=== PATIENT | female | born 1985 | race Caucasian/White ===

== ENCOUNTER 2016-12-24 06:47 | Emergency (ER) | payer OTHER ==
[~2016-12-24] VITALS: Ht 162.6 cm; Wt 63.5 kg
[~2016-12-24 06:47] MED LIST: ADDERALL 10 MG10 MG PO; ALPRAZOLAM1 M2 PO; LEXAPRO20 M1 PO; MIRENA1 EACH; MULTI-DAY VITA1 EACH PO
--- NOTE | 2016-12-24 07:29 | ED GENERAL ADULT ---
History of Present Illness General Chief Complaint: General Adult Stated Complaint: PANIC ATTACK Source: patient, family Exam Limitations: no limitations Vital Signs & Intake/Output Vital Signs & Intake/Output Vital Signs Date Time Temp Pulse Resp B/P Pulse O2 O2 Flow FiO2 Ox Delivery Rate 12/24 0849 98.6 76 18 126/84 98 Room Air 12/24 0654 Room Air 12/24 0650 97.2 85 20 134/91 100 Room Air Allergies Coded Allergies: No Known Allergies (08/25/16) Reconcile Medications Alprazolam 1 MG TABLET 2 TAB PO BID PRN ANXIETY (Reported) Escitalopram Oxalate (Lexapro) 20 MG TABLET 1 TAB PO DAILY DEPRESSION ( Reported) Levonorgestrel (Mirena) 20 MCG/24 HOUR (5 YEARS) IUD CONTROL (Reported) Multivitamin (Multi-Day Vitamins) 1 EACH TABLET 1 TAB PO DAILY SUPPLEMENT ( Reported) Triage Note: PT BIBA S/P WAKING UP HAVING A "?PANIC ATTACK." PT HAS HX OF ANXIETY AND RAN OUT OF MEDS. PER PT, PT HAS BEEN UNDER ALOT OF STRESS LATELY AND GOING THROUGH A DIVORCE. Triage Nurses Notes Reviewed? yes : No Patient currently breastfeeds: No HPI: 31-year-old woman with past medical history of anxiety and panic attack and depression seen for evaluation of nausea/vomiting and a reported panic attack. Patient reports increased stress in her life as she is going through a custody clemons over her child and her divorce from her spouse. She reports nausea with associated bilious vomiting since yesterday. She woke this morning around 3 AM and again at 5 AM with a "panic attack" describing her palpitations, tremulousness with high levels of anxiety. These events were further corroborated by her mother Natividad who was present during the interview. Currently she denies any suicidal/homicidal ideation. She reportedly is followed by a Dr. Javier for control of her panic attacks and was due to see them at 10 AM today for a medication refill. She suffered from these panic attacks since age 16 and reports that they have been well controlled on her regimen of trazodone, Lexapro, and alprazolam 2 mg 3 times a day when necessary. Additionally she denies any headache, fever, chills, chest pain, shortness breath, cough, diarrhea. (NATALIIA HARRIS,FELICIANO) Past History Travel History Traveled to [place] past 21 day No Medical History Any Pertinent Medical History? see below for history Neurological: NONE EENT: NONE Cardiovascular: NONE Respiratory: NONE Gastrointestinal: NONE Hepatic: NONE Renal: NONE Musculoskeletal: NONE Psychiatric: anxiety Endocrine: NONE Blood Disorders: anemia Cancer(s): NONE BUSINESS DEVELOPMENT ENGINEER/Reproductive: NONE Surgical History Surgical History: non-contributory Psychosocial History What is your primary language Syriac Tobacco Use: Never used ETOH Use: denies use Family History Hx Contributory? Yes (FELICIANO WILLIAM MD) Review of Systems Review of Systems Constitutional: Reports: see HPI. (FELICIANO WILLIAM MD) Review of Systems EENTM: Reports: no symptoms. Respiratory: Reports: no symptoms. Cardiovascular: Reports: no symptoms. GI: Reports: no symptoms. Genitourinary: Reports: no symptoms. Musculoskeletal: Reports: no symptoms. Skin: Reports: no symptoms. Neurological/Psychological: Reports: see HPI, anxiety. Hematologic/Endocrine: Reports: no symptoms. Immunologic/Allergic: Reports: no symptoms. All Other Systems: Reviewed and Negative (MITCHELL PACHECO MD) Physical Exam Physical Exam General Appearance: well developed/nourished, anxious, mild distress Comments: General - well-developed, well-nourished young woman in mild distress HEENT - NCAT, PERRL, EOMI, anicteric sclera Cardio -tachycardic, S1/S2 without murmurs gallops or rubs Resp - CTA bilaterally w/o wheezing/rhochi/crackles GI - soft, nontender, nondistended, bowel sounds present Neuro - Awake and alert, CN II - XII grossly intact Extremities -normal pulses, no cyanosis/clubbing/edema Core Measures ACS in differential dx? No CVA/TIA Diagnosis: No Severe Sepsis Present: No Septic Shock Present: No (FELICIANO WILLIAM MD) Progress Differential Diagnoses I considered the following diagnoses in my evaluation of the patient: Panic attack, anxiety, substance intoxication, gastroenteritis, pancreatitis Plan of Care: Orders Procedure Date/time Status URINE DRUGS OF ABUSE 12/24 720 Active URINE 12/24 720 Active LIPASE 12/24 720 Complete COMPREHENSIVE METABOLIC PANEL 12/24 720 Complete CBC WITHOUT DIFFERENTIAL 12/24 720 Complete EKG 12/24 720 Active Laboratory Tests 12/24/16 0745: Anion Gap 16, Estimated GFR > 60, BUN/Creatinine Ratio 44.0 H, Glucose 118 H, Calcium 9.6, Total Bilirubin 1.6 H, AST 20, ALT 23, Alkaline Phosphatase 62, Total Protein 7.5, Albumin 4.5, Globulin 3.0, Albumin/Globulin Ratio 1.5, Lipase 82, CBC w Diff NO MAN DIFF REQ, RBC 4.45, MCV 93.5, MCH 31.6 H, RDW 11.7, MPV 8.1, Gran % 86.5 H, Lymphocytes % 8.8 L, Monocytes % 4.4, Eosinophils % 0, Basophils % 0.3, Absolute Granulocytes 10.1 H, Absolute Lymphocytes 1.0 L, Absolute Monocytes 0.5, Absolute Eosinophils 0, Absolute Basophils 0, PUBS MCHC 33.8 Initial ED EKG: Left axis deviation, T-wave inversion leads III, AVF Comments: Complete blood count demonstrated a mild leukocytosis of 11.2 and was otherwise unremarkable. Comprehensive metabolic panel demonstrated a mildly elevated total bilirubin level to 1.6. Given patient's benign abdominal exam and recent history of nausea and vomiting it is unlikely that patient has any active biliary disease. Given her history of present illness and history of anxiety/ depression with panic attacks it is more likely than not patients current presentation represents that of an acute panic attack. EKG demonstrated normal sinus rhythm left axis deviation and nonspecific T-wave inversions in the inferior leads without any ST segment changes. QTc was found to be prolonged to 517. Patient was given 2 mg of alprazolam with instruction to follow-up with her therapist Dr. Javier for further evaluation after discharge. Patient was given a copy of her EKG to bring to her psychiatrist appointment for assessment of QTc prolongation in regards to her psychiatric medication regimen. (FELICIANO WILLIAM MD) Departure Departure Disposition: HOME OR SELF CARE Condition: Stable Clinical Impression Primary Impression: Panic attack Secondary Impressions: Anxiety Referrals: PATIENT HAS NO PRIMARY CARE DR (PCP/Family) Additional Instructions: Take alprazolam as directed by her psychiatrist. Follow-up with Dr. Javier for further evaluation of your anxiety and panic attacks. Call 911 or return to the ED should your symptoms worsen or return. Departure Forms: Customer Survey General Discharge Information (FELICIANO WILLIAM MD) Resident Co-Sign Statement Statement: ED Attending supervision documentation- x I saw and evaluated the patient. I have also reviewed all the pertinent lab results and diagnostic results. I agree with the findings and the plan of care as documented in the Resident's documentation. [] I have reviewed the ED Record and agree with the Resident's documentation. [] Additions or exceptions (if any) to the Resident's note and plan are summarized below: [] (JUNIOR HARRIS,MITCHELL) Critical Care Note Critical Care Note Critical Care Time: non-applicable (NATALIIA HARRIS,FELICIANO)
[2016-12-24 07:51] LABS: ABSOLUTE BASOPHIL COUNT 0 /CUMM (0.0-0.2); ABSOLUTE EOSINOPHIL COUNT 0 /CUMM (0.0-0.7); ABSOLUTE GRANULOCYTE CT 10.1 /CUMM (1.4-6.5); ABSOLUTE MONOCYTE COUNT 0.5 /CUMM (0.10-0.60); BASOPHIL % 0.3 % (0.0-2.0); EOSINOPHIL % 0 % (0-5); HEMATOCRIT 41.6 % (37-47); MEAN CORPUSCULAR HGB 31.6 PG (27.0-31.0); MEAN CORPUSCULAR HGB CONC 33.8 G/DL (33.0-37.0); MEAN CORPUSCULAR VOLUME 93.5 FL (81.0-99.0); MEAN PLATELET VOLUME 8.1 FL (7.4-10.4); RBC DISTRIBUTION WIDTH 11.7 % (11.5-14.5); RED BLOOD CELL CT 4.45 /CUMM (4.20-5.40); WHITE BLOOD CELL COUNT 11.6 /CUMM (4.8-10.8)
[2016-12-24 08:09] LABS: GRANULOCYTE % 86.5 % (42.2-75.2); PLATELET COUNT 249 /CUMM (130-400)
[2016-12-24 08:49] VITALS: BP 126/84
== END 2016-12-24 08:53 ==
LOC: ERH 06:47
PROVIDERS: Internal Medicine Interventional Cardiology
DX: F41.0 Panic disorder [episodic paroxysmal anxiety] (principal); R11.2 Nausea with vomiting, unspecified; R00.2 Palpitations
CPT/HCPCS: 80307; 81025; 93005; 93010